=== PATIENT | male | born 1945 | race Caucasian/White ===

== ENCOUNTER 2018-02-11 11:44 | Emergency (ER) | payer MEDICARE, OTHER ==
[~2018-02-11] VITALS: Ht 193 cm; Wt 89.9 kg
[2018-02-11] MEDS ORDERED: LOVA20TA2 PO (12:52)
[2018-02-11] MEDS ORDERED: METF850T2 PO (12:52)
[2018-02-11] MEDS ORDERED: QUIN20TA17 PO (12:52)
[2018-02-11] MEDS ORDERED: AMLO10TA2 PO (12:52)
[2018-02-11] MEDS ORDERED: SODIUM CHLORIDE FLUSH 10ML SYR IVF ONE (13:00)
[2018-02-11 13:19] LABS: BASOPHILS # (AUTO) 0.02 x10^3/uL (0-0.1); BASOPHILS % (AUTO) 0 % (0-1); EOSINOPHILS % (AUTO) 0 % (1-7); LYMPHOCYTES # (AUTO) 0.77 x10^3/uL (1-3.4); LYMPHOCYTES % (AUTO) 8 % (22-44); MD NO; MEAN CORPUSCULAR HEMOGLOBIN 31.8 pg (27.5-34.5); MEAN CORPUSCULAR HGB CONC 34.4 g/dL (33.2-36.2); MEAN CORPUSCULAR VOLUME 92.4 fL (81-97); MEAN PLATELET VOLUME 8.9 fL (7.4-10.4); MONOCYTES # (AUTO) 1.23 x10^3/uL (0.2-0.8); MONOCYTES % (AUTO) 12 % (2-9); NEUTROPHILS # (AUTO) 7.98 x10^3/uL (1.8-6.8); NEUTROPHILS % (AUTO) 80 % (42-75); PLATELET COUNT 197 x10^3/uL (130-400); RED BLOOD COUNT 5.08 x10^6/uL (4.38-5.82); RED CELL DISTRIBUTION WIDTH 13.1 % (9.4-14.8)
[2018-02-11 13:27] LABS: INTERNATIONAL NORMALIZED RATIO 1.02 (0.93-1.1); PROTHROMBIN TIME 10.6 Seconds (9.6-11.5)
[2018-02-11 13:31] LABS: ALBUMIN 3.4 g/dL (3.4-5.0); CHLORIDE 104 mmol/L (98-107)
[2018-02-11] MEDS ORDERED: SODIUM CHLORIDE 0.9% 1,000ML IVBOLUS ONE (14:30)
[2018-02-11 14:37] LABS: ALANINE AMINOTRANSFERASE 30 U/L (12-78); ALKALINE PHOSPHATASE 55 U/L (45-117); ANION GAP 13 mmol/L (5-15); BILIRUBIN,TOTAL 2.1 mg/dL (0.2-1.0); CREATININE 1.09 mg/dL (0.7-1.3); TOTAL PROTEIN 7.1 g/dL (6.4-8.2)
[2018-02-11 14:56] LABS: CULTURE INDICATED? YES; MICROSCOPIC INDICATED
[2018-02-11 15:32] VITALS: BP 121/50
== END 2018-02-11 16:05 | disposition home or self-care (01) ==
LOC: ED 14:21
DX: N13.2 Hydronephrosis with renal and ureteral calculous obstruction (principal); R31.0 Gross hematuria; Z88.0 Allergy status to penicillin; Z87.442 Personal history of urinary calculi
CPT/HCPCS: 36415; 74177; 80053; 81001; 85025; 85610; 85730; 87086; 96360; 99285; J7030

== ENCOUNTER → 2018-03-02 | Outpatient (CLI) | payer MEDICARE, OTHER ==
[~2018-03-02] MED LIST: AMLO10TA2 PO; FUROSEMIDE 20 MG/2 ML ONE; LOVA20TA2 PO; METF850T2 PO; QUIN20TA17 PO
== END | disposition home or self-care (01) ==
LOC: RAD 09:59
PROVIDERS: ATTEND Physician Assistant Surgical
DX: N13.30 Unspecified hydronephrosis (principal)
CPT/HCPCS: 78708; A9562; J1940